=== PATIENT | male | born 1990 | race Caucasian/White ===

== ENCOUNTER 2021-05-04 14:40 | Emergency (ER) | payer OTHER, SELFPAY ==
[2021-05-04 15:02] VITALS: BP 126/75; PULSE 77; RESP 18; TEMP 36.5; O2SAT 100
--- NOTE | 2021-05-04 15:11 | ED.GENADULT ---
HPI - General Adult General Chief complaint: Dental/Oral Stated complaint: rash on tongue Time Seen by Provider: 05/04/21 15:11 Source: patient, RN notes reviewed and old records reviewed Mode of arrival: ambulatory Limitations: no limitations History of Present Illness HPI narrative: 31-year-old male who presents with complaints of stinging sensation to the right back of throat since last night with some difficult and painful swallowing. Patient states that he had COVID the first part of this month and has had some cough which has lingered but no fevers, chills or sweats or any body aches. Patient states that he feels like he has to cough to clear his throat. Patient reports that he does have a history of exercise induced and allergy induced asthma, denies any shortness of breath. Related Data Allergies Allergy/AdvReac Type Severity Reaction Status Date / Time grass pollen Allergy Unknown Verified 05/04/21 15:10 dust Allergy Unknown Uncoded 05/04/21 15:10 Review of Systems Review of Systems: CONSTITUTIONAL: Denies fever, chills, or sweats. EYES: Denies visual changes, redness, or discharge. ENT: Denies rhinorrhea, congestion,positive for sore throat, no otalgia. CARDIOVASCULAR: Denies chest pain, palpitations, or edema. RESPIRATORY: Positive for intermittent cough denies any dyspnea. GASTROINTESTINAL: Denies abdominal pain, nausea, vomiting, or diarrhea. GENITOURINARY: Denies dysuria or hematuria. SKIN: Denies rash or itching. MUSCULOSKELETAL: Denies back pain, joint pain, or myalgia. NEUROLOGIC: Denies headache, numbness, or weakness. PSYCHIATRIC: Denies anxiety or depression. All systems reviewed & are unremarkable except as noted in HPI and below PMFSH Past Medical History Medical History (Updated 05/04/21 @ 15:28 by Rose Lundberg NP) Asthma exercise and allergy induced Surgical History Surgical History (Updated 05/04/21 @ 15:22 by Rose Lundberg NP) No history of previous surgery Family History Family History (Updated 05/04/21 @ 15:25 by Rose Lundberg NP) Grandparent Heart disease Diabetes mellitus Cerebrovascular accident Father Skin cancer Mother Hx of thyroid cancer Social History Social History (Updated 05/04/21 @ 15:26 by Rose L. Toño, STERILE TECHNICIAN) Smoking status: Never smoker Alcohol intake: current Alcohol use details: rare Substance use: never Living arrangements: alone Additional occupation/education comments: active Gender identity (if verbalized by the patient): Male Comments At time of signature, agree with nursing past medical, surgical, social and family history. There is no relevant family history pertinent to the presenting complaint Exam Narrative: GENERAL: Well-appearing, well-nourished, and in no acute distress. HEAD: Normocephalic, atraumatic. EYES: PERRLA and EOMI. ENT: Nares mild redness with clear rhinorrhea no epistaxis. Mucous membranes moist.TM's normal with good light reflex, throat red with swollen enlarged tonsils and red enlarged uvula, no exudates or lesions noted. NECK: Supple, lymphadenopathy noted bilaterally CHEST: Clear to auscultation. No respiratory distress.SAO2 100% on room air, no wheezing or tachypnea noted. HEART: Regular rate and rhythm. No murmur heard. Normal peripheral pulses. ABDOMEN: Soft, nontender, nondistended, normal active bowel sounds. EXTREMITIES: Normal range of motion. No edema. SKIN: Warm, dry, no rash. NEURO: No focal deficits. Alert and oriented x3. Course Course Level of Care: Express Care Visit Vital Signs Vital signs: Vital Signs Temperature 36.5 C 05/04/21 15:02 Pulse Rate 77 05/04/21 15:02 Respiratory Rate 18 05/04/21 15:02 Blood Pressure 126/75 05/04/21 15:02 Pulse Oximetry 100 05/04/21 15:02 Temperature 36.5 C 05/04/21 15:02 Pulse Rate 77 05/04/21 15:02 Respiratory Rate 18 05/04/21 15:02 Blood Pressure 126/75 05/04/21 15:02 Pulse Oximetry 100
== END 2021-05-04 15:35 | disposition home or self-care (01) ==
PROVIDERS: Emergency Provider Registered Nurse
DX: J02.0 Streptococcal pharyngitis (principal); J45.909 Unspecified asthma, uncomplicated; Z86.16 Personal history of COVID-19
CPT/HCPCS: 99203; G0463